=== PATIENT | male | born 1960 | race Caucasian/White ===

== ENCOUNTER → 2016-06-20 | Outpatient (CLI) | payer OTHER ==
--- NOTE | 2016-06-20 15:51 | DIAGNOSTIC IMAGING REPORT ---
ULTRASOUND OF THE THYROID GLAND CLINICAL HISTORY: Thyroid nodule. COMPARISON STUDY: No priors. TECHNIQUE: Real-time, grayscale, and color flow sonography of the thyroid gland is performed utilizing a high-frequency linear transducer. Images are reviewed in the transverse and longitudinal planes. FINDINGS: Right lobe: The right lobe of the thyroid gland is normal in size and homogeneous in echotexture, measuring 5.5 x 2.1 x 1.2 cm. Left lobe: The left lobe of the thyroid gland is normal in size and homogeneous in echotexture, measuring 5.3 x 1.8 x 1.4 cm. Isthmus: The thyroid isthmus is normal in appearance and measures 0.3 cm in AP diameter. IMPRESSION: Unremarkable sonographic assessment of the thyroid gland. Electronically signed by: Prasanth Gonzalez M.D. 06/20/2016 3:50 PM Dictated Date/Time: 06/20/2016 3:49 PM
== END | disposition home or self-care (01) ==
LOC: C.ULTR 15:25
PROVIDERS: ATTEND Family Medicine
DX: E04.1 Nontoxic single thyroid nodule (principal)